=== PATIENT | female | born 1990 | race Caucasian/White ===

== ENCOUNTER 2021-10-24 04:58 | Emergency (ER) | payer MEDICAID, SELFPAY ==
[~2021-10-24] VITALS: Ht 162.6 cm; Wt 104.3 kg
[2021-10-24 05:55] VITALS: BP_SYST 121
--- NOTE | 2021-10-24 06:00 | NUR ---
Patient triaged and placed in tent. VSS and patient appears in no acute distress at this time. Accompanied by , awaiting available bed, and MD notified of need for MSE.
--- NOTE | 2021-10-24 06:23 | NUR ---
ER in tent examining patient.
[2021-10-24] MEDS ORDERED: ALBU8.5H8 INH (07:19)
[2021-10-24] MEDS ORDERED: PRED20TA PO (07:19)
--- NOTE | 2021-10-24 07:30 | NUR ---
PT IN TENT, AAOX4, AMBULATORY, VSS, NO APPARANT DISTRESS
[2021-10-24 08:10] VITALS: BP_SYST 121
--- NOTE | 2021-10-24 08:14 | NUR ---
Patient given written and verbal discharge instructions and verbalizes understanding. ER MD discussed with patient the results and treatment provided. Patient in stable condition. ID arm band removed. Rx of ALBUTEROL AND PREDNISON given. Patient educated on pain management and to follow up with PMD. Pain Scale 0/10. Opportunity for questions provided and answered. Medication side effect fact sheet provided.
== END 2021-10-24 08:14 | disposition home or self-care (01) ==
LOC: SED 04:58
DX: U07.1 COVID-19 (principal); J40 Bronchitis, not specified as acute or chronic
CPT/HCPCS: 71045; 99283